=== PATIENT | female | born 1970 | race Two or more races ===

== ENCOUNTER 2017-12-16 21:17 | Emergency (ER) | payer OTHER ==
[~2017-12-16] VITALS: Ht 162.6 cm; Wt 65.3 kg
[2017-12-17] MEDS ORDERED: DICY20TA PO (04:22)
[2017-12-17] MEDS ORDERED: INTESTINEX680 M1 PO (04:22)
[2017-12-17] MEDS ORDERED: CIPRO500 MG PO (04:22)
== END 2017-12-17 04:37 | disposition home or self-care (01) ==
LOC: ER 21:17
DX: K52.9 Noninfective gastroenteritis and colitis, unspecified (principal); R10.84 Generalized abdominal pain